=== PATIENT | female | born 1975 | race Caucasian/White ===

== ENCOUNTER 2022-03-25 13:03 | Observation (INO) ==
[~2022-03-25 13:03] MED LIST: LORazepam 2 mg VIAL 1 ml ONE; Lorazepam PYXIS KEY ONE; Ondansetron 4 mg VIAL 2 MG/ML 2 ml VIAL ONE
[2022-03-25] MEDS ORDERED: Magnesium Sulfate 2 gm BAG 2 GM/50 ML BAG ONE (13:20)
[2022-03-25 13:39] LABS: Albumin 3.8 g/dL (3.2-5.2); Calcium 8.6 mg/dL (8.6-10.3); Potassium 3.2 mmol/L (3.5-5.0); Total Bilirubin 1.3 mg/dL (0.2-1.0)
[2022-03-25 13:45] LABS: Albumin/Globulin Ratio 1.3 (1-3); Total Protein 6.8 g/dL (6.4-8.9); eGFR CKD-EPI 114.1 (>60)
[2022-03-25] MEDS ORDERED: NS 0.9% w/ 20 Meq KCL 1000 ml 1,000 ML ONE (13:57)
[2022-03-25] MEDS ORDERED: LORazepam 2 mg VIAL 1 ml ONE ×2 (15:15→16:04)
[2022-03-25] MEDS ORDERED: Lorazepam PYXIS KEY ONE ×2 (15:15→16:04)
[2022-03-25 15:19] LABS: Hematocrit 33 % (35-47); Hemoglobin 10.5 g/dL (12.0-16.0); Mean Corpuscular HGB Conc 32 g/dL (31-36); Mean Corpuscular Hemoglobin 30 pg (27-31); Mean Corpuscular Volume 95 fL (80-97); Mean Platelet Volume 11.2 fL (7.4-10.4); Platelet Count 281 10^3/uL (150-450); Red Blood Count 3.47 10^6 /uL (3.70-4.87); Red Cell Distribution Width 19 % (10-15); White Blood Count 12.4 10^3/uL (3.5-10.8)
[2022-03-25 15:56] LABS: Anisocytosis 1+; Howell Jolly Bodies Present; Target Cells 1+
[2022-03-25 15:57] LABS: ABS Basophils 0.2 10^3/ul (0-0.2); ABS Lymphocytes 0.7 10^3/ul (1.0-4.8); ABS Monocytes 0.1 10^3/ul (0-0.8); ABS Neutrophils 11.3 10^3/ul (1.5-7.7); Eosinophil % 0.1 %
[2022-03-25] MEDS ORDERED: Dextrose 50% Syringe 50 ml 25 GM/50 ML SYRINGE IV PUSH PRN (16:48)
[2022-03-25] MEDS ORDERED: Lorazepam PYXIS KEY PRN (16:48)
[2022-03-25] MEDS ORDERED: Dexamethasone IV 4 MG/ML VIAL 1 ml VIAL IV SLOW PU ONE (16:59)
[2022-03-25] MEDS ORDERED: Famotidine IV 10 MG/ML 2 ml VIAL (20 mg) IV SLOW PU ONE (16:59)
[2022-03-25] MEDS ORDERED: Scopolamine 1 mg/72hr PATCH TRANSDERM PRN (17:02)
[2022-03-25] MEDS: Pantoprazole VIAL 40 MG VIAL IV SCH (17:43)
[2022-03-25] MEDS: NS 0.9% w/ 20 Meq KCL 1000 ml 1,000 ML IV SCH (17:51)
[2022-03-25 18:22] LABS: C Reactive Protein 12.88 mg/L (<8.01)
[2022-03-25] MEDS ORDERED: Ondansetron 4 mg VIAL 2 MG/ML 2 ml VIAL IV PRN ×2 (18:26→19:00)
[2022-03-25] MEDS: Acetaminophen IV 1 GM/100ML 1,000 MG/100 ML BAG IV PRN (20:00)
[2022-03-25] MEDS: LORazepam 2 mg VIAL 1 ml IV PUSH PRN (20:28)
[2022-03-25] MEDS ORDERED: OLANZapine 5 mg TAB *ODT PO SCH (21:00)
[2022-03-26] MEDS: Acetaminophen IV 1 GM/100ML 1,000 MG/100 ML BAG IV PRN (04:12)
[2022-03-26] MEDS: LORazepam 2 mg VIAL 1 ml IV PUSH PRN ×3 (04:16→14:29)
[2022-03-26] MEDS: NS 0.9% w/ 20 Meq KCL 1000 ml 1,000 ML IV SCH ×2 (04:19→16:17)
[2022-03-26 05:47] LABS: Hematocrit 27 % (35-47); Hemoglobin 8.8 g/dL (12.0-16.0); Mean Corpuscular HGB Conc 33 g/dL (31-36); Mean Corpuscular Hemoglobin 32 pg (27-31); Mean Corpuscular Volume 97 fL (80-97); Mean Platelet Volume 10.4 fL (7.4-10.4); Platelet Count 218 10^3/uL (150-450); Red Blood Count 2.78 10^6 /uL (3.70-4.87); Red Cell Distribution Width 18 % (10-15); White Blood Count 10.3 10^3/uL (3.5-10.8)
[2022-03-26 06:42] LABS: Albumin 3.3 g/dL (3.2-5.2); Albumin/Globulin Ratio 1.6 (1-3); Calcium 8.2 mg/dL (8.6-10.3); Globulin 2.1 g/dL (2-4); Magnesium 1.9 mg/dL (1.9-2.7); Potassium 4.1 mmol/L (3.5-5.0); Total Bilirubin 0.9 mg/dL (0.2-1.0); Total Protein 5.4 g/dL (6.4-8.9); eGFR CKD-EPI 117.2 (>60)
[2022-03-26 07:16] LABS: ABS Basophils 0.1 10^3/ul (0-0.2); ABS Lymphocytes 0.4 10^3/ul (1.0-4.8); ABS Monocytes 0.2 10^3/ul (0-0.8); ABS Neutrophils 9.6 10^3/ul (1.5-7.7); Eosinophil % 0.1 %
[2022-03-26] MEDS ORDERED: Morphine 2 MG/ML SYRINGE IV PRN (08:35)
[2022-03-26] MEDS: Pantoprazole VIAL 40 MG VIAL IV SCH (08:41)
[2022-03-26] MEDS ORDERED: OLANZapine 5 mg TAB *ODT PO SCH ×2 (13:51→14:35)
[2022-03-26] MEDS ORDERED: Ondansetron 4 mg VIAL 2 MG/ML 2 ml VIAL IV SCH (14:00)
[2022-03-26] MEDS: Ondansetron ODT 4 mg TAB 4 MG TAB SL SCH ×2 (15:12→21:03)
[2022-03-26] MEDS ORDERED: Enoxaparin 40 MG/0.4 ML SYR SUBCUT SCH (16:00)
[2022-03-27] MEDS: Ondansetron ODT 4 mg TAB 4 MG TAB SL SCH ×3 (02:24→15:56)
[2022-03-27] MEDS: NS 0.9% w/ 20 Meq KCL 1000 ml 1,000 ML IV SCH (02:24)
[2022-03-27 05:39] LABS: ABS Lymphocytes 2.2 10^3/ul (1.0-4.8); ABS Monocytes 0.3 10^3/ul (0-0.8); Eosinophil % 0.2 %; Hematocrit 24 % (35-47); Hemoglobin 7.6 g/dL (12.0-16.0); Lymphocyte % 48.3 %; Mean Corpuscular HGB Conc 32 g/dL (31-36); Mean Corpuscular Hemoglobin 31 pg (27-31); Mean Corpuscular Volume 97 fL (80-97); Mean Platelet Volume 10.5 fL (7.4-10.4); Platelet Count 181 10^3/uL (150-450); Red Blood Count 2.47 10^6 /uL (3.70-4.87); Red Cell Distribution Width 18 % (10-15); White Blood Count 4.5 10^3/uL (3.5-10.8)
[2022-03-27 06:19] LABS: Calcium 7.7 mg/dL (8.6-10.3); Magnesium 1.4 mg/dL (1.9-2.7); Potassium 3.6 mmol/L (3.5-5.0); eGFR CKD-EPI 116.7 (>60)
[2022-03-27] MEDS ORDERED: Magnesium Sulfate IV 3 GM in NS 0.9% 100 ml BAG 100 ML IVPB ONE (08:06)
[2022-03-27 08:34] LABS: Albumin 3.1 g/dL (3.2-5.2); Albumin/Globulin Ratio 1.7 (1-3); Direct Bilirubin 0.1 mg/dL (0.03-0.18); Globulin 1.8 g/dL (2-4); Indirect Bilirubin 0.5 mg/dL (0.3-1.0); Total Bilirubin 0.6 mg/dL (0.2-1.0); Total Protein 4.9 g/dL (6.4-8.9)
[2022-03-27] MEDS: Pantoprazole VIAL 40 MG VIAL IV SCH (09:18)
[2022-03-27] MEDS ORDERED: Gadoteridol (CONTRAST) 279.3 MG/ML 10 ML IV ONE (13:33)
[2022-03-27 16:09] VITALS: BP 105/72
== END 2022-03-27 16:50 | disposition home or self-care (01) ==
LOC: SSU 13:03 → CHOA 13:03 → SUATTDRO 16:30
PROVIDERS: ADMIT Internal Medicine Hematology & Oncology; ATTEND Student in an Organized Health Care Education/Training Program

== ENCOUNTER 2022-06-09 06:03 | Inpatient (IN) ==
[~2022-06-09 06:03] MED LIST changes: +Buffered Lidocaine 1% SYRIN 1 ml INTRADERM ONE; -LORazepam 2 mg VIAL 1 ml ONE; +Lactated Ringers 1000 ml BAG 1,000 ML IV SCH; -Lorazepam PYXIS KEY ONE; -Ondansetron 4 mg VIAL 2 MG/ML 2 ml VIAL ONE
[2022-06-09] MEDS ORDERED: Heparin 5000 UNITS/ML 1 mL VIAL ONE (06:29)
[2022-06-09] MEDS ORDERED: ceFAZolin 2 GM in NS PREMIX 2 GM/100 ML BAG IVPB ONE (06:29)
[2022-06-09] MEDS ORDERED: Midazolam 2 mg/2 ml VIAL 1 mg/ml 2 ml VIAL (2 mg) ONE (06:40)
[2022-06-09] MEDS ORDERED: Rocuronium 50 mg VIAL 10 mg/ml 5 ml VIAL (50 mg) ONE (06:40)
[2022-06-09] MEDS ORDERED: fentaNYL 100 mcg/2 ml 50 MCG/ML VIAL ONE ×2 (06:40→10:09)
[2022-06-09] MEDS ORDERED: Propofol 10 MG/ML 20 ML BTL ONE (06:40)
[2022-06-09] MEDS ORDERED: Ondansetron 4 mg VIAL 2 MG/ML 2 ml VIAL ONE (06:40)
[2022-06-09] MEDS ORDERED: Dexamethasone IV 4 MG/ML VIAL 1 ml VIAL ONE (06:40)
[2022-06-09] MEDS ORDERED: Lidocaine 2% PF 5 ML VIAL ONE (06:40)
[2022-06-09] MEDS ORDERED: Bupivacaine 0.5% SDV PF 30ML VIAL ONE (06:51)
[2022-06-09] MEDS ORDERED: Scopolamine 1 mg/72hr PATCH ONE (07:29)
[2022-06-09] MEDS ORDERED: Phenylephrine 40 mcg/mL 10mL (400mcg) SYRINGE ONE ×2 (07:52→10:40)
[2022-06-09] MEDS ORDERED: HYDROmorphone 0.5 MG/0.5 ML SYRINGE ONE (08:14)
[2022-06-09] MEDS ORDERED: Glycopyrrolate IV 0.2 MG/ML 1 ML VIAL ONE (10:01)
[2022-06-09] MEDS ORDERED: Naloxone 0.4 mg VIAL 0.4 mg/ml 1 ml VIAL IV PRN (11:03)
[2022-06-09] MEDS ORDERED: HYDROmorphone 1 MG/1 ML SYRINGE IV PRN (11:03)
[2022-06-09] MEDS ORDERED: Phenylephrine IV 10 MG/ML 1 ml VIAL ONE (11:07)
[2022-06-09] MEDS ORDERED: ceFAZolin VIAL VIAL ONE (11:37)
[2022-06-09] MEDS ORDERED: Acetaminophen IV 1 GM/100ML 1,000 MG/100 ML BAG IV ONE (11:37)
[2022-06-09] MEDS ORDERED: Prochlorperazine 5 mg/ml 2 ml VIAL (10 mg) ONE (12:30)
[2022-06-09] MEDS ORDERED: Benzocaine/Menthol LOZ PO PRN (12:31)
[2022-06-09] MEDS ORDERED: HYDROcodone/ACETAMIN 5/325 mg TAB PO PRN ×2 (12:33)
[2022-06-09] MEDS ORDERED: Morphine 2 MG/ML SYRINGE IV PRN (12:34)
[2022-06-09] MEDS ORDERED: Prochlorperazine 5 mg/ml 2 ml VIAL (10 mg) IV SCH (13:00)
[2022-06-09] MEDS: Heparin 5000 UNITS/ML 1 mL VIAL SUBCUT SCH (15:38)
[2022-06-09] MEDS ORDERED: Dextrose 50% Syringe 50 ml 25 GM/50 ML SYRINGE IV PUSH PRN (15:55)
[2022-06-09] MEDS: ceFAZolin VIAL 2 GM in NS 0.9% 100 ml BAG 100 ML IVPB SCH (17:46)
[2022-06-09] MEDS ORDERED: DULoxetine DR 30 mg CAP PO SCH (21:00)
[2022-06-09] MEDS ORDERED: GLIPIZIDE METFORMIN PO SCH (21:00)
[2022-06-10] MEDS: Heparin 5000 UNITS/ML 1 mL VIAL SUBCUT SCH ×3 (01:16→15:09)
[2022-06-10] MEDS: ceFAZolin VIAL 2 GM in NS 0.9% 100 ml BAG 100 ML IVPB SCH ×3 (01:16→15:10)
[2022-06-10] MEDS ORDERED: Potassium Chlor 20 meq TAB.ER PO SCH (12:00)
[2022-06-10 15:01] VITALS: BP 88/55
== END 2022-06-10 16:15 | disposition home or self-care (01) | DRG 362 ==
LOC: AA 06:03 → SSU 15:06
PROVIDERS: ADMIT Student in an Organized Health Care Education/Training Program; ATTEND Student in an Organized Health Care Education/Training Program